=== PATIENT | female | born 1975 | race Two or more races ===

== ENCOUNTER 2025-02-20 21:49 | Emergency (ER) | payer OTHER ==
[~2025-02-20] VITALS: Ht 165.1 cm; Wt 86.2 kg
[2025-02-20] MEDS ORDERED: SYNTHROID50 MCG PO (22:07)
[2025-02-21] MEDS ORDERED: ORPHENADRINE CITRATE 30 MG/ML AMPUL IM STA (00:42)
[2025-02-21] MEDS ORDERED: KETOROLAC TROMETHAMINE 60 MG VIAL IM STA (00:42)
[2025-02-21] MEDS ORDERED: TRAMADOL HCL50 MG PO (00:50)
[2025-02-21] MEDS ORDERED: NORFLEX100MG PO (00:50)
[2025-02-21] MEDS ORDERED: KETO10TA2 PO (00:50)
== END 2025-02-21 01:18 ==
LOC: ER 21:49
DX: M54.50 Low back pain, unspecified (principal)